=== PATIENT | male | born 1945 | race African-American/Black ===

== ENCOUNTER 2021-04-15 23:29 | Emergency (ER) | payer MEDICARE, BC ==
[~2021-04-15] VITALS: Ht 172.7 cm; Wt 124.0 kg
[2021-04-16] MEDS ORDERED: IBUPROFEN 600MG TABLET PO STA (01:44)
[2021-04-16 02:56] LABS: BASOPHILS % 0.4 % (0.0-2.0); EOSINOPHILS % 2.1 % (0.0-5.0); HEMATOCRIT. 38.2 % (42.0-52.0); HEMOGLOBIN. 12.7 g/dL (14.0-18.0); LYMPHOCYTES % 12.9 % (20.0-50.0); MEAN CORPUSCULAR HEMOGLOBIN 29.9 pg (28.0-32.0); MEAN CORPUSCULAR VOLUME 90.2 fL (80.0-94.0); MEAN PLATELET VOLUME 9.3 fl (7.4-10.4); MONOCYTES % 7.5 % (2.0-8.0); NEUTROPHILS % 77.1 % (40.0-76.0); PLATELET 153 x1000/uL (130-400); RED BLOOD CELL COUNT 4.23 mill/uL (4.7-6.1)
[2021-04-16 03:11] LABS: CHLORIDE 110 mEq/L (98-107)
[2021-04-16 05:30] VITALS: BP 166/92
== END 2021-04-16 05:50 | disposition home or self-care (01) ==
LOC: ER 23:29
DX: M79.662 Pain in left lower leg (principal); M79.89 Other specified soft tissue disorders; Z90.49 Acquired absence of other specified parts of digestive tract
CPT/HCPCS: 36415; 71045; 76881; 80053; 83880; 85025; 93005; 93971; 99285

== ENCOUNTER 2024-04-03 14:36 | Emergency (ER) | payer MEDICARE, BC ==
[~2024-04-03] VITALS: Ht 175.3 cm; Wt 124.0 kg
[2024-04-03 14:42] VITALS: O2SAT 98
[2024-04-03 15:01] LABS: BASOPHILS % 0.7 % (0.0-2.0); EOSINOPHILS % 2.9 % (0.0-5.0); HEMATOCRIT. 37.3 % (42.0-52.0); HEMOGLOBIN. 12.2 g/dL (14.0-18.0); MEAN CORPUSCULAR HEMOGLOBIN 29.6 pg (28.0-32.0); MEAN CORPUSCULAR HGB CONC 32.8 g/dL (31.0-37.0); MEAN CORPUSCULAR VOLUME 90.5 fL (80.0-94.0); MEAN PLATELET VOLUME 8.4 fl (7.4-10.4); MONOCYTES % 8.5 % (2.0-8.0); NEUTROPHILS % 69.9 % (40.0-76.0); PLATELET 170 x1000/uL (130-400); RED BLOOD CELL COUNT 4.12 mill/uL (4.7-6.1); RED CELL DISTRIBUTION WIDTH 14.7 % (11.6-14.6); WHITE BLOOD COUNT 5.9 x1000/uL (4.5-11.0)
[2024-04-03 15:11] LABS: CHLORIDE 113 mEq/L (98-107); POTASSIUM 3.9 mEq/L (3.5-5.1); SODIUM 146 mEq/L (136-145)
[2024-04-03 15:12] LABS: CALCIUM 9.2 mg/dL (8.7-10.4); CARBON DIOXIDE 29 mEq/L (21-32)
[2024-04-03 15:17] LABS: GLUCOSE 90 mg/dL (70-105); UREA NITROGEN BLOOD 16 mg/dL (9-23)
[2024-04-03 15:18] LABS: TROPONIN I HIGH SENSITIVITY 6 ng/L (3.0-53)
[2024-04-03] MEDS ORDERED: METH-653 MT (16:08)
[2024-04-03] MEDS ORDERED: IBUP-2029 MT (16:08)
[2024-04-03 17:05] LABS: TROPONIN I HIGH SENSITIVITY 7 ng/L (3.0-53)
[2024-04-03] MEDS: IBUPROFEN 600MG TABLET PO ONE (17:42)
[2024-04-03] MEDS: METHOCARBAMOL 500MG TABLET PO ONE (17:42)
[2024-04-03 17:56] VITALS: BP 142/78; PULSE 113; RESP 18; TEMP 37.05852; O2SAT 100
== END 2024-04-03 17:59 | disposition home or self-care (01) ==
LOC: ER 14:36
DX: S29.012A Strain of muscle and tendon of back wall of thorax, initial encounter (principal); I10 Essential (primary) hypertension; Z90.49 Acquired absence of other specified parts of digestive tract; X58.XXXA Exposure to other specified factors, initial encounter; Y93.89 Activity, other specified; Y92.89 Other specified places as the place of occurrence of the external cause; Y99.8 Other external cause status
CPT/HCPCS: 36415; 71045; 80048; 83880; 84484; 85025; 93005; 99285